=== PATIENT | female | born 2000 | race Caucasian/White ===

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

== ENCOUNTER 2020-06-04 23:40 | Emergency (ER) | payer MEDICAID ==
[~2020-06-04] VITALS: Ht 170.2 cm; Wt 51.7 kg
[2020-06-05] MEDS ORDERED: ACETAMINOPHEN 500 MG TABLET ONE (00:05)
--- NOTE | 2020-06-05 00:11 | NUR ---
THIS IS A 20F THAT COMES IN TONIGHT FOR FLU LIKE SYMPTOMS STARTING THIS MORNING. PT STS IT STARTED WITH A SORE THROAT AND HAS PROGRESSIVELY GOTTEN WORSE THROUGH THE DAY. PT CONNECTED TO ALL MONITORING PIV STARTED, PT MEDICATED PER APR FOR FEVER, AND FLUIDS STARTED. PT UP TO RESTROOM FOR URINE SAMPLE, SISTER AT BEDSIDE FOR SUPPORT. NO FURTHER NEEDS AT THIS TIME.
[2020-06-05 00:21] LABS: BASOPHILS % (AUTO) 0 % (0-1); EOSINOPHILS % (AUTO) 0 % (1-7); LYMPHOCYTES % (AUTO) 11 % (22-44); MD NO; MEAN CORPUSCULAR HEMOGLOBIN 29.1 pg (27.0-34.8); MEAN PLATELET VOLUME 8.5 fL (7.4-10.4); MONOCYTES % (AUTO) 6 % (2-9); NEUTROPHILS % (AUTO) 83 % (42-75); PLATELET COUNT 262 x10^3/uL (130-400); RED BLOOD COUNT 4.98 x10^6/uL (3.82-5.3); RED CELL DISTRIBUTION WIDTH 13.2 % (9.6-15.2)
--- NOTE | 2020-06-05 00:24 | NUR ---
PT RESTING ON YANNICK ZIEGLER
[2020-06-05 00:26] LABS: ALANINE AMINOTRANSFERASE 19 U/L (12-78); ALBUMIN 4.6 g/dL (3.4-5.0); ANION GAP 8 mmol/L (5-15); CALCIUM 9.5 mg/dL (8.5-10.1); CHLORIDE 107 mmol/L (98-107); CREATININE 0.81 mg/dL (0.55-1.02)
[2020-06-05 00:28] LABS: ALKALINE PHOSPHATASE 67 U/L (45-117); BILIRUBIN,TOTAL 1.2 mg/dL (0.2-1.0); TOTAL PROTEIN 8.6 g/dL (6.4-8.2)
[2020-06-05] MEDS ORDERED: SODIUM CHLORIDE 0.9% 1,000ML IVBOLUS ONE (00:30)
[2020-06-05] MEDS ORDERED: ACETAMINOPHEN 500 MG TABLET PO ONE (00:30)
[2020-06-05] MEDS ORDERED: CEFTRIAXONE PMX 2GM/50ML 50 ML IVPB ONE (00:30)
[2020-06-05 00:37] LABS: MICROSCOPIC AUTO
[2020-06-05] MEDS ORDERED: CEFTRIAXONE PMX 2GM/50ML 50 ML ONE (00:39)
--- NOTE | 2020-06-05 00:50 | NUR ---
Pt medicated per order. Warm blanket given. HR down to 100. Family at bedside. Pt states she is feeling better. Pt on monitor, will contiune to monitor.
[2020-06-05] MEDS ORDERED: LACTATED RINGERS 1,000 ML IV ONE (01:00)
[2020-06-05 01:27] LABS: RAPID INFLUENZA A Negative (Negative); RAPID INFLUENZA B Negative (Negative)
[2020-06-05 02:12] VITALS: BP 114/59
--- NOTE | 2020-06-05 02:15 | NUR ---
Rx reviewed with patient. IV dc'd intact. Pt states feeling better. Pt home with sister who is driving. Patient/Caregiver given discharge instructions and they have confirmed that they understand the instructions. Patient ambulatory with steady gait.
== END 2020-06-05 02:17 | disposition home or self-care (01) ==
LOC: ED 06-05 00:48
DX: R50.9 Fever, unspecified (principal); Z20.822 Contact with and (suspected) exposure to COVID-19; M79.10 Myalgia, unspecified site; J02.9 Acute pharyngitis, unspecified; R09.81 Nasal congestion; R00.0 Tachycardia, unspecified; R19.7 Diarrhea, unspecified
CPT/HCPCS: 36415; 71045; 80053; 81001; 83605; 84145; 84443; 85025; 87040; 87400; 93005; 96365; 99285; J0696; J7030; J7120; U0003